=== PATIENT | female | born 1990 | race Caucasian/White ===

== ENCOUNTER 2016-12-14 12:25 | Outpatient (CLI) | payer OTHER ==
--- NOTE | 2016-12-14 15:15 | RAD ---
T TUBE CHOLANGIOGRAM: History: Choledocholithiasis. FINDINGS: Sterile technique was used to carefully inject Isovue 300 contrast into the indwelling biliary drain T-Tube. The nondilated common duct shows no filling defects. Contrast easily passed into the duoden um. IMPRESSION: 1. No evidence of biliary obstruction. 2. Findings were called to Dr. Odom at 1330 hours. Code CR POS: SJ
[2016-12-14] MEDS ORDERED: Iopamidol 300 61% 30 ML VIAL ONE (16:03)
== END 2016-12-14 12:26 | disposition home or self-care (01) ==
LOC: RAD 12:25
PROVIDERS: ATTEND Surgery
DX: K80.50 Calculus of bile duct without cholangitis or cholecystitis without obstruction (principal); R10.11 Right upper quadrant pain
CPT/HCPCS: 47531

== ENCOUNTER 2018-09-15 05:30 | Inpatient (IN) | payer BC ==
[2018-09-15] MEDS ORDERED: Ondansetron PF 4 MG/2 ML Vial IVP PRN ×2 (06:33→13:53)
[2018-09-15] MEDS ORDERED: Methylergonovine 0.2 MG/ML VIAL IM PRN ×2 (06:33→21:58)
[2018-09-15] MEDS ORDERED: HYDROcodone/Acetaminophen 5/325 mg Tablet PO PRN ×3 (06:33→21:58)
[2018-09-15] MEDS ORDERED: Ibuprofen 800 MG TAB PO PRN (06:33)
[2018-09-15] MEDS ORDERED: hydrALAZINE 20 MG/ML VIAL SLOW IVP PRN ×2 (06:33→21:58)
[2018-09-15] MEDS ORDERED: Promethazine HCl 25 MG/ML VIAL IM PRN ×2 (06:33→13:53)
[2018-09-15] MEDS ORDERED: Lidocaine 1% (PF) 30 ML VIAL SC PRN (06:33)
[2018-09-15] MEDS: NS w/ Oxytocin 10 units 500 ML IV SCH ×2 (07:31→19:51)
[2018-09-15 07:46] VITALS: BMI 37.6
[2018-09-15 08:06] LABS: Hemoglobin 11.9 g/dL (12.0-16.0); Mean Corpuscular HGB CONC 34.5 g/dL (32.0-36.0); Mean Corpuscular Hemoglobin 30.9 pg (27.0-31.0); Mean Corpuscular Volume 89.4 fL (78.0-98.0); Mean Platelet Volume 8.1 fL (7.4-10.4); Platelet Count 190 thou/uL (130-400); RBC Distribution Width 12.6 % (11.5-14.5); Red Blood Cell (RBC) Count 3.86 mill/uL (4.20-5.40); White Blood Cell (WBC) Count 6.5 thou/uL (4.8-10.8)
[2018-09-15 08:48] LABS: HBSAg Index 0.23 S/CO (0-0.99); Hep B Surf Ag Non-Reactive S/CO (NonReactive); Syphilis Antibody Nonreactive (Nonreactive); Syphilis Antibody Index 0.04 S/CO (<1.00 Non-Reactive)
[2018-09-15] MEDS ORDERED: Fentanyl 4 mcg/Bup 0.1% Cadd 100 ML ONE (12:44)
--- NOTE | 2018-09-15 12:47 | PDOC.LDHP ---
Labor and Delivery H&P Chief complaint: other (Elective induction of labor) HPI: Patient is doing well. Arrived this morning to hospital for elective induction of labor. Current gestational age (weeks): 39 Due date: 09/22/18 Dating criteria: first trimester ultrasound Grav: 2 Para: 1 OB History Details: G1 IVF, , 7# 1 oz G2 spontaneous conception Abnormal US findings: No (FOB has arterial stenois. ECHO NML) Past Medical History: CIU, Chronic idopathic uticaria on Xolair injections monthly Current medications: pre-derick vitamins, other (Xolair injections monthly) Previous surgical history: cholecystectomy Allergies/Adverse Reactions: Allergies Allergy/AdvReac Type Severity Reaction Status Date / Time No Known Drug Allergies Allergy Verified 09/15/18 07:20 Social history: none - Physical Exam Vital signs reviewed and normal: yes Heart: RRR Lungs: nonlabored breathing Abdomen: gravid Extremeties: trace edema FHT: category 1 - Vaginal Exam cm dilated: 2 Effacement: 50% Station: -2 - OB Labs Blood type: O RH: positive Antibody Screen: negative HIV: negative RPR: negative HEPSAg: negative 1 hour GCT: negative GBS: negative Urine drug screen: negative Rubella: immune - Assessment L&D Assessment: elective induction at term - Plan Plan: admit to L&D
--- NOTE | 2018-09-15 12:55 | PDOC.EVN ---
Event Note - Event Note Event Note: S: Patient is feeling more contractions. She is ready for her epidural. O: cervical exam /1, AROMed at 0845 this morning. 125 baseline, moderate variability. no decels noted I attempted to place and IUPC as patient was on 16 of pitocin. IUPC would not advance past 30cm and blood fluid was observed. Procedure was abandoned. Abdomen was not tender to palpation. Category one strip noted after bloody fluid was observed A: hector 39 weeks gestation P: observe patient and fluid. FSE if unable to monitor.
[2018-09-15] MEDS ORDERED: Lactated Ringer's 500 ML IV PRN (13:53)
[2018-09-15] MEDS ORDERED: Acetaminophen 325 MG TAB PO PRN (13:53)
[2018-09-15] MEDS ORDERED: Naloxone HCl 0.4 mg/ml Vial IVP PRN ×2 (13:53)
[2018-09-15] MEDS ORDERED: ePHEDrine/0.9% NaCl/PF SYRINGE 50 mg/10 ml SLOW IVP PRN (13:53)
[2018-09-15] MEDS ORDERED: diphenhydrAMINE 50 MG/ML VIAL IVP PRN (13:53)
[2018-09-15] MEDS ORDERED: Fentanyl 4 mcg/Bupivacaine 0.1% Cassette 100 ML EPIDURAL SCH (14:00)
[2018-09-15] MEDS ORDERED: Communication Order-Pharmacy FS SCH (14:00)
[2018-09-15] MEDS ORDERED: Fentanyl 100 MCG/2 ML VIAL ONE (14:19)
[2018-09-15] MEDS ORDERED: Fentanyl 100 MCG/2 ML VIAL SLOW IVP SCH (14:21)
[2018-09-15] MEDS ORDERED: Lactated Ringer's 1,000 ML IV SCH (15:15)
--- NOTE | 2018-09-15 17:48 | PDOC.LDPN ---
Labor & Delivery Progress Note - Subjective Subjective: comfortable (with epidural) - Objective Vital signs reviewed and normal: yes General: resting Dilation: 8 Effacement: 90% Station: 1+ FHT: category 2 (minimal variability, early decels.) FSE placed: yes - Assessment (1) 39 weeks gestation of Code(s): Z3A.39 - 39 WEEKS GESTATION OF Current Visit: Yes Status : Acute (2) Elective induction of labor planned Code(s): [id number] - Current Visit: Yes Status: Acute (3) Obesity Code(s): E66.9 - OBESITY, UNSPECIFIED Current Visit: Yes Status: Acute (4) Chronic idiopathic urticaria Code(s): L50.1 - IDIOPATHIC URTICARIA Current Visit: Yes Status: Acute Plan: continue plan of care -: FSE placed, continue pitocin for augmentation.
[2018-09-15] MEDS ORDERED: Misoprostol 200 MCG TAB ONE (19:41)
--- NOTE | 2018-09-15 19:50 | PDOC.OPDEL ---
OB Operative/Delivery Note Delivery Dr/Surgeon: Virgil Miranda CNM Pre-Delivery Diagnosis: active labor, elective induction Procedure/Post Delivery Dx: spontaneous vaginal delivery Anesthesia: epidural - Findings A Sex: female - 1 min: 9 - 5 min: 9 - Additional Findings/Plan Placenta delivered: spontaneous Estimated blood loss: 250Ml EBL. see nurse note for QBL Post delivery plan: routine recovery
[2018-09-15] MEDS: NS / Oxytocin 40 units/1000ml 1,000 ML IV PRN ×2 (19:51→21:56)
[2018-09-15] MEDS ORDERED: Calcium Carbonate 500 MG ChewTAB PO PRN (21:58)
[2018-09-15] MEDS ORDERED: NS / Oxytocin 40 units/1000ml 1,000 ML IV SCH (21:58)
[2018-09-15] MEDS ORDERED: Bisacodyl 10 MG SUPP PR PRN (21:58)
[2018-09-15] MEDS ORDERED: Benzocaine-Menthol 82.5 ML CAN TOP PRN (21:58)
[2018-09-15] MEDS ORDERED: Milk Of Magnesia 30 ML UDCUP PO PRN (21:58)
[2018-09-15] MEDS ORDERED: Sodium Chloride 0.9% (PF) 10 ML VIAL ONE (23:00)
[2018-09-15] MEDS ORDERED: Bupivacaine 0.25% HCL 30 ML VIAL ONE (23:00)
[2018-09-15] MEDS ORDERED: Loratadine 10 MG TAB PO PRN (23:22)
[2018-09-15] MEDS: HYDROcodone/Acetaminophen 5/325 mg Tablet PO PRN (23:30)
[2018-09-15] MEDS: Ibuprofen 800 MG TAB PO SCH (23:30)
[2018-09-15] MEDS ORDERED: Loratadine 10 MG TAB PO SCH (23:30)
--- NOTE | 2018-09-16 00:34 | PDOC.PP ---
Post Progress Note Post Day #: 1 Subjective: Patient is very tired. Her baby just got very fussy, but she would not breastfeed. She declined help with at this time because she just wants to sleep. She has yet to get up to go to the bathroom. PO intake tolerated: yes Flatus: yes Ambulation: yes (Up to the wheel chair from delivery bed.) Weight Weight 254 lb - Physical Examination General: NAD Cardiovascular: no m/r/g, RRR Respiratory: non-labored breathing Abdominal: lochia (moderate) Extremities: negative homans (B) Skin: no rash Psychiatric: A&Ox3, normal affect Result Diagrams: 09/15/18 07:25 Additional Labs: Post Labs Blood Type O POSITIVE 09/15/18 08:15 Hep Bs Antigen Non-Reactive S/CO (NonReactive) 09/15/18 07:25 (1) 39 weeks gestation of Code(s): Z3A.39 - 39 WEEKS GESTATION OF Status: Acute (2) Elective induction of labor planned Code(s): [id number] - Status: Acute (3) Obesity Code(s): E66.9 - OBESITY, UNSPECIFIED Status: Acute (4) Chronic idiopathic urticaria Code(s): L50.1 - IDIOPATHIC URTICARIA Status: Acute (5) (spontaneous vaginal delivery) Code(s): O80 - ENCOUNTER FOR FULL-TERM UNCOMPLICATED DELIVERY Status: Acute - Assessment/Plan A: s/p following elective IOL P: routine care.
[2018-09-16] MEDS: Ibuprofen 800 MG TAB PO SCH ×4 (06:48→21:48)
[2018-09-16] MEDS: Ferrous Sulfate 325 MG TAB PO SCH ×2 (07:40→17:28)
[2018-09-16] MEDS: Docusate Calcium (SURFAK) 240 MG CAP PO SCH ×2 (07:55→21:48)
[2018-09-16] MEDS: Prenatal Vitamin 1 TAB PO SCH (07:55)
[2018-09-16] MEDS: HYDROcodone/Acetaminophen 5/325 mg Tablet PO PRN ×2 (07:55→14:41)
[2018-09-16] MEDS ORDERED: Adacel (T-DAP) 0.5 ML SYRINGE IM ONE (09:00)
[2018-09-17] MEDS: Ibuprofen 800 MG TAB PO SCH (06:17)
--- NOTE | 2018-09-17 07:02 | PDOC.PP ---
Post Progress Note Post Day #: 2 Subjective: Doing well, ready for DC home PO intake tolerated: yes Vital Signs (12 hours) Temp Pulse Resp BP Pulse Ox 09/16/18 20:10 97.8 F 80 17 131/68 09/16/18 20:00 99 Weight Weight 254 lb - Physical Examination General: NAD Cardiovascular: no m/r/g Respiratory: clear to auscultation bilaterally Abdominal: + bowel sounds, lochia, no distention, appropriately TTP Extremities: negative homans (B) Neurological: no gross focal deficits Psychiatric: A&Ox3, normal affect Result Diagrams: 09/15/18 07:25 Additional Labs: Post Labs Blood Type O POSITIVE 09/15/18 08:15 Hep Bs Antigen Non-Reactive S/CO (NonReactive) 09/15/18 07:25 (1) (spontaneous vaginal delivery) Code(s): O80 - ENCOUNTER FOR FULL-TERM UNCOMPLICATED DELIVERY Status: Acute - Assessment/Plan PPD 2 doing well...ok for [facility]. Motroin PRN. F/U 2-4 weeks
[2018-09-17] MEDS: Ferrous Sulfate 325 MG TAB PO SCH (07:12)
[2018-09-17 08:23] VITALS: BP 137/71; TEMP 98.2
[2018-09-17] MEDS: Prenatal Vitamin 1 TAB PO SCH (09:03)
[2018-09-17] MEDS: Docusate Calcium (SURFAK) 240 MG CAP PO SCH (09:03)
== END 2018-09-17 11:25 | disposition home or self-care (01) | DRG 807 ==
LOC: L&D 06:26 → 3SW 22:29
PROVIDERS: ADMIT Student in an Organized Health Care Education/Training Program; ATTEND Student in an Organized Health Care Education/Training Program
PROC: 10907ZC Drainage of Amniotic Fluid, Therapeutic from Products of Conception, Via Natural or Artificial Opening (ICD-10-PCS; principal; 2018-09-15)
PROC: 10E0XZZ Delivery of Products of Conception, External Approach (ICD-10-PCS; 2018-09-15)
PROC: 3E033VJ Introduction of Other Hormone into Peripheral Vein, Percutaneous Approach (ICD-10-PCS; 2018-09-15)
DX: O99.214 Obesity complicating childbirth (principal); Z37.0 Single live birth; E66.9 Obesity, unspecified; Z3A.39 39 weeks gestation of pregnancy
CPT/HCPCS: 36415; 51702; 85027; 86780; 86850; 86900; 86901; 87340; J2590; J3010; S0020